=== PATIENT | male | born 1940 | race Caucasian/White ===

== ENCOUNTER → 2018-01-09 | Outpatient (CLI) | payer OTHER | END | disposition home or self-care (01) | LOC: LAB 10:18 | PROVIDERS: ATTEND Internal Medicine Cardiovascular Disease | DX: I25.10 Atherosclerotic heart disease of native coronary artery without angina pectoris (principal) | CPT/HCPCS: 36415; 80061 ==

== ENCOUNTER 2018-01-20 00:09 | Inpatient (IN) | payer OTHER ==
[2018-01-15 14:12] VITALS: BP 157/80
[2018-01-15 14:41] LABS: BASOPHIL % 0.5 % (0.0-0.2); EOSINOPHIL # 0.2 10^3/uL (0.0-0.2); EOSINOPHIL % 2.1 % (0.0-5.0); HEMOGLOBIN 14.6 g/dL (13.9-16.3); LYMPHOCYTES # 1.6 10^3/uL (1.0-4.8); LYMPHOCYTES % 18.6 % (24.0-44.0); MEAN CELL HGB 27.9 pg (26-34); MEAN CELL HGB CONCENTRATION 33.9 g/dL (33-37); MEAN CORP VOLUME 82.4 fL (78-100); MEAN PLATELET VOLUME 9.8 fL (7.8-11.0); MONOCYTES % 12.2 % (5.0-12.0); NEUTROPHIL # 5.6 10^3/uL (1.8-7.7); NEUTROPHILS % 66.1 % (41.0-85.0); WHITE BLOOD CELL 8.5 10^3/uL (4.5-11.0)
[2018-01-15 15:08] LABS: CARBON DIOXIDE 25.4 mmol/L (20.0-32)
[2018-01-15 15:10] LABS: BILIRUBIN,URINE NEGATIVE (NEGATIVE); UROBILINOGEN,URINE NORMAL (NEGATIVE)
[2018-01-15 15:27] LABS: APPEARANCE,URINE CLEAR (CLEAR); UA COLOR YELLOW (YELLOW)
--- NOTE | 2018-01-15 16:18 | PCM.EKG ---
[facility] Test Date: 2018-01-15 Test Time: 14:34:45 Pat Name: SHAGUFTA BEY Department: Room: Gender: M Photograph Tinter: KF ADMISSIONS SUPERVISOR : 1940 Requested By: NATHAN COLEMAN Order Number: [id number] Reading MD: Maxwell Barger Measurements Intervals [place] Rate: 59 P: 48 MO: 178 QRS: 73 QRSD: 114 T: 61 QT: 432 QTc: 427 Interpretive Statements Sinus bradycardia Otherwise normal ECG No previous ECG available for comparison Electronically Signed On 01-20-2018 14:35:10 CDT by Maxwell Barger Please click the below link to view image of tracing.
[2018-01-20] VITALS (9 sets, daily range): BP systolic 91–150; BP diastolic 33–80
[~2018-01-20] VITALS: Ht 170.2 cm; Wt 91.3 kg
[~2018-01-20 00:09] MED LIST: AMLO2.5T2 PO; ASPI-484 PO; MELO15TA24 PO; MULT1TAB52 PO
[2018-01-20] MEDS ORDERED: NS 250ML 250 ML IV ONE ×2 (05:14→07:22)
[2018-01-20] MEDS ORDERED: VANCOMYCIN HCL 2 GM ONE (05:14)
[2018-01-20] MEDS ORDERED: BACTROBAN TP ONE (06:00)
[2018-01-20] MEDS ORDERED: VANCOMYCIN 1,500 MG in NS 100ML 100 ML IV ONE (06:00)
[2018-01-20] MEDS ORDERED: BACTROBAN TP SCH (06:20)
[2018-01-20] MEDS: LACTATED RINGERS 1,000 ML IV SCH ×4 (06:21→20:00)
[2018-01-20] MEDS ORDERED: DIPRIVAN IV ONE (06:57)
[2018-01-20] MEDS ORDERED: ZEMURON IV ONE (06:57)
[2018-01-20] MEDS ORDERED: DECADRON ONE ×3 (06:58→11:13)
[2018-01-20] MEDS ORDERED: LIDOCAINE 2% VIAL ONE ×2 (06:59→11:19)
[2018-01-20] MEDS ORDERED: NEOSTIGMINE ONE (06:59)
[2018-01-20] MEDS ORDERED: CELEBREX PO SCH ×2 (07:00→21:00)
[2018-01-20] MEDS ORDERED: ZOFRAN IV PRN (07:00)
[2018-01-20] MEDS ORDERED: LACTATED RINGERS 1,000 ML IV SCH (07:00)
[2018-01-20] MEDS ORDERED: NEURONTIN PO SCH (07:00)
[2018-01-20] MEDS ORDERED: TYLENOL PO SCH (07:00)
[2018-01-20] MEDS ORDERED: PHENERGAN IV PRN (07:00)
[2018-01-20] MEDS ORDERED: SUBLIMAZE ONE (07:00)
[2018-01-20] MEDS ORDERED: DILAUDID IV PRN ×2 (07:00→11:00)
[2018-01-20] MEDS ORDERED: DILAUDID ONE ×2 (07:00→10:43)
[2018-01-20] MEDS ORDERED: SODIUM CHLORIDE IR ONE (07:21)
[2018-01-20] MEDS ORDERED: NS 100ML 200 ML IV ONE (07:21)
[2018-01-20] MEDS ORDERED: SENSORCAINE-MPF 0.5% VIAL ONE (07:22)
[2018-01-20] MEDS ORDERED: NS 3000ML IRR IR ONE (07:22)
[2018-01-20] MEDS ORDERED: TRANEXAMIC ACID IV ONE (07:33)
[2018-01-20] MEDS ORDERED: EXPAREL 266 MG/20 ML VIAL IJ ONE (09:36)
[2018-01-20] MEDS ORDERED: ROBINAL IV SCH (10:30)
[2018-01-20] MEDS ORDERED: DILAUDID IV ONE (10:44)
[2018-01-20] MEDS ORDERED: DILAUDID IV STA ×2 (10:59)
[2018-01-20] MEDS ORDERED: LACTATED RINGERS 1,000 ML ONE (10:59)
[2018-01-20] MEDS ORDERED: NAROPIN 0.5% 5 MG/ML VIAL ONE (11:13)
[2018-01-20] MEDS ORDERED: CLONIDINE 1,000 MCG/10 ML VIAL EP ONE (11:13)
--- NOTE | 2018-01-20 11:50 | NUR ---
ARRIVAL PT ARRIVED TO UNIT FROM OR VIA BED. PT SET UP ON SPECIAL VITALS MONITOR, ORIENTED TO ROOM AND CALL LIGHT, PT RESTING WITH EYES CLOSED, RESPIRATIONS EVEN AND NON LABORED, NO S/S OF DISTRESS. BED IN LOW POSITION, WHEELS LOCKED, CALL LIGHT IN REACH. WILL CONTINUE TO MONITOR
--- NOTE | 2018-01-20 11:50 | DIREP ---
PROCEDURE:XRAY KNEE 2 VWS-LT COMPARISON:None. INDICATIONS:POST TOTAL LEFT KNEE FINDINGS: Arthroplasty of the left knee in good alignment and without visualized complication. Expected postoperative joint effusion and subcutaneous emphysema with anterior surgical franky. CONCLUSION: Arthroplasty in good alignment and without visualized complication. Dictated by: Doug Carballo DO on 01/20/2018 at 11:49 AM
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
[2018-01-20] MEDS: TYLENOL PO SCH ×3 (13:41→19:00)
--- NOTE | 2018-01-20 14:19 | OPH ---
DATE OF SURGERY: 01/20/2018 PREOPERATIVE DIAGNOSIS: Osteoarthritis of the left knee. POSTOPERATIVE DIAGNOSIS: Osteoarthritis of the left knee. OPERATIVE PROCEDURE: Left total knee arthroplasty using Medacta size 4 femur, a size 4 tibia, 11 mm insert. All components were cemented. SURGEON: Yash Jimenez MD ANESTHESIA: General endotracheal. TOURNIQUET TIME: 67 minutes at 300 mmHg. DRAINS: None. BLOOD LOSS: 400 mL. DESCRIPTION OF INDICATIONS: The patient is a 77-year-old male with pain about the left knee for several years. This has been worse over the last 3-4 months. He complains of limping as well as pain with just household ambulation. He has tried Mobic as well as Tylenol and tramadol for the pain. He has good range of motion, good medial and lateral stability. He is no better with home exercise program as well as off the shelf bracing. The x-rays show that he is iysb-tj-[id number] medially and has patellofemoral narrowing. DESCRIPTION OF PROCEDURE: The patient was placed on the operating table in the supine position. General endotracheal anesthetic was induced without difficulty. A well-padded tourniquet was placed about the left thigh. The left lower extremity was then sterilely prepped and draped. The leg was exsanguinated with an Esmarch and then the tourniquet was inflated to 300 mmHg. The patient had the knee flexed to 90 degrees. An anterior incision was made about the knee. Incision was taken through the skin and the subcutaneous tissues. Full thickness flaps were developed medially and laterally. The patient had a medial parapatellar arthrotomy performed. The patella was deviated laterally. The patient then had the medial and lateral meniscectomies performed. The anterior and posterior cruciate ligaments were removed. The medial capsule and the MCL were released around the posterior medial corner. The intramedullary drill hole was made about the distal femur. The intramedullary humberto was then placed down the shaft of the femur with the distal femoral cutting guide attached. The cutting guide was pinned to the distal femur and the distal femoral cut was made with the power saw. The knee had the bent knee retractor applied and the tibia was subluxed anteriorly. The patient had the intramedullary drill hole made about the center portion of the tibia proximally. The guide humberto was then placed down the shaft of the tibia. The cutting block that was attached to the intramedullary humberto was then adjusted for posterior slope, varus, valgus, depth of cut and rotation. Once all the parameters were met, the cutting block was pinned into position. The cut was made at 8 mm below the lateral least involved surface. We then applied the #2 femoral jig to the distal femur. It was held into position with 2 screws and 2 pins. The distal femur measured a size 4. The size 4 cutting block was applied and held into position with multiple screws and pins. The anterior and posterior femoral cuts as well as the chamfer cuts were then made. The flexion and extension blocks were used. A size 11 mm polyethylene flexion, extension block had good fit at 90 degrees and full extension. The patient had the tibia trialled and a size 4 tibial trial had good coverage. It was held into position with 2 pins. The central drill hole was made and then the cruciate punch was used to stabilize the tibial component. The patient then had a trial reduction done with a size 4 tibia and 11 mm insert and a size 4 femur. The knee went out into full extension. He had 120 degrees of flexion. There was excellent medial and lateral stability and excellent tracking of his patella. The patella showed some peripheral osteophytes, but the central articular cartilage was fairly well intact. So, we elected not to resurface the patella. The peripheral osteophytes were trimmed and the peripheral edges of the patella were then cauterized. The patient then had the final medial and lateral femoral drill holes made. The femoral sulcus cut was made. The patient had the trial components all removed. The Exparel and bupivacaine were then injected into the soft tissue about the knee. The patient then had the wounds copiously irrigated and the bone ends were dried. A size 4 tibial component was cemented into position. The 11 mm insert was impacted in the mid position and secured with an anterior screw. The size 4 femoral component likewise was cemented into position. Once all the excess cement was removed and the cement had hardened, and the tourniquet was released, the bleeding was controlled with the Aquamantys device. The capsule was closed with a #2 PDS in interrupted [id number]-[id number] manner. The knee was injected with a gram of tranexamic acid diluted with 50 mL of saline. The patient had the subcutaneous closed with a running 2-0 barbed Monocryl and then the skin was closed with franky. A medium size Aquacel was applied and reinforced with 4 x 4's, ABD pad, cast padding and an Mina wrap. The patient was extubated in the operating room, sent to recovery in stable condition. Yash Jimenez MD DR: ALANA/taiwo JOB# [id number]
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
[2018-01-20] MEDS ORDERED: CEPACOL SORE THROAT LOZENGE MM PRN (15:30)
[2018-01-20] MEDS ORDERED: MORPHINE SULFATE IV PRN (15:30)
[2018-01-20] MEDS: ULTRAM PO SCH ×2 (16:00→20:00)
[2018-01-20] MEDS: ULTRAM PO PRN ×2 (16:17→20:00)
[2018-01-20 17:49] LABS: HEMOGLOBIN 12.4 g/dL (13.9-16.3); MEAN CELL HGB 27.9 pg (26-34); MEAN CELL HGB CONCENTRATION 32.6 g/dL (33-37); MEAN CORP VOLUME 85.4 fL (78-100); MEAN PLATELET VOLUME 9.7 fL (7.8-11.0); RED CELL DISTRIBUTION WIDTH 13.9 % (11.5-14.5); WHITE BLOOD CELL 11.6 10^3/uL (4.5-11.0)
--- NOTE | 2018-01-20 18:36 | NUR ---
report received report from offgoing shift
[2018-01-20] MEDS: VANCOMYCIN HCL 1.5 GM in NS 250ML 300 ML IV SCH (20:08)
[2018-01-20] MEDS: CELEBREX PO SCH (20:42)
[2018-01-21] VITALS (7 sets, daily range): BP systolic 117–135; BP diastolic 58–78
[2018-01-21] MEDS: ULTRAM PO PRN ×3 (00:04→08:05)
[2018-01-21] MEDS: TYLENOL PO SCH ×4 (01:00→19:00)
[2018-01-21] MEDS: LACTATED RINGERS 1,000 ML IV SCH ×6 (01:20→21:00)
[2018-01-21] MEDS: ULTRAM PO SCH ×7 (04:00→23:50)
[2018-01-21 05:21] LABS: HEMOGLOBIN 11.9 g/dL (13.9-16.3); MEAN CELL HGB 28.1 pg (26-34); MEAN CELL HGB CONCENTRATION 32.6 g/dL (33-37); MEAN CORP VOLUME 86.1 fL (78-100); MEAN PLATELET VOLUME 9.9 fL (7.8-11.0); WHITE BLOOD CELL 16.8 10^3/uL (4.5-11.0)
--- NOTE | 2018-01-21 06:30 | NUR ---
REPORT REPORT RECEIVED FROM CASSANDRA ANDREWS.
--- NOTE | 2018-01-21 06:40 | NUR ---
report report given to o/c shift
[2018-01-21] MEDS ORDERED: NEURONTIN PO SCH (07:00)
[2018-01-21] MEDS ORDERED: PEPCID ONE (07:57)
[2018-01-21] MEDS ORDERED: COLACE PO ONE (07:58)
[2018-01-21] MEDS ORDERED: XARELTO ONE (07:58)
[2018-01-21] MEDS: COLACE PO SCH (08:02)
[2018-01-21] MEDS: PEPCID PO SCH (08:02)
[2018-01-21] MEDS: VANCOMYCIN HCL 1.5 GM in NS 250ML 300 ML IV SCH ×2 (08:02→20:15)
[2018-01-21] MEDS: XARELTO PO SCH (08:03)
[2018-01-21] MEDS: CELEBREX PO SCH ×2 (08:04→20:16)
--- NOTE | 2018-01-21 09:12 | NUR ---
STATUS UPDATE PATIENT SITTING UP IN BED. SOCIALIZING WITH SPOUSE. PATIENT DENIES PAIN OR DISCOMFORT AT THIS TIME. BED IN LOW LOCK POSITION WITH SIDE RAILS X2. CALL LIGHT AND BEDSIDE TABLE WITHIN REACH.
--- NOTE | 2018-01-21 10:40 | NUR ---
DISCHARGE PLAN CM VISITED WITH PATIENT REGARDING DISCHARGE PLAN AND NEEDS. PATIENT LIVES AT HOME WITH HIS IN [place]. HE IS VERY ACTIVE AND INDEPENDENT. HE HAS A WALKER WITH A SEAT AND DENIES NEED FOR ANY ADDITIONAL DME. PATIENT WANTS TO DO HIS PHYSICAL THERAPY AT AN OUTPATIENT THERAPY CLINIC IN [place] AND WANTS CM DEPT TO FIND ONE WHO ACCEPTS HIS INSURANCE. CM CONTACTED [facility]. APPOINTMENT SCHEDULED. INFORMATION GIVEN TO PATIENT AND PUT IN DISCHARGE INSTRUCTIONS. DISCHARGE GOAL IS TO DISCHARGE HOME WITH . CM DEPT WILL CONTINUE TO MONITOR DISCHARGE NEEDS.
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
--- NOTE | 2018-01-21 11:16 | NUR ---
post op day 1 s/p TKR with exparel injected by surgeon intraarticular. pt had 8/10 pain in pacu and a rescue adductor canal block was performed. Physical Therapist noted that the first time the patient got up the pain was bad per the pat and his BP dropped and he felt as thought he was going to pass out. no further episodes like this since. Pt stated the block did help with the pain but he is still having pain with leg extension in the thigh and some pain in the upper part of the knee. he says it is tolerable. He has been up ambulating the baxter and denies any other issues. will followup tomorrow.
--- NOTE | 2018-01-21 15:42 | NUR ---
STATUS UPDATE PATIENT SITTING UPRIGHT IN BED. CALL LIGHT AND BEDSIDE TABLE WITHIN REACH. BED IN LOW LOCK POSITION. SIDE RAILS X2. PATIENT DENIES NEEDS AT THIS TIME.
--- NOTE | 2018-01-21 19:29 | NUR ---
REPORT REPORT GIVEN TO SOLE MOLDING MACHINE OPERATOR.
[2018-01-22] MEDS: TYLENOL PO SCH ×4 (01:00→19:28)
[2018-01-22 01:44] VITALS: BP 119/66
[2018-01-22] MEDS: LACTATED RINGERS 1,000 ML IV SCH ×6 (02:00→22:00)
[2018-01-22] MEDS: ULTRAM PO SCH ×5 (03:50→20:00)
[2018-01-22 05:11] LABS: HEMOGLOBIN 11.2 g/dL (13.9-16.3); MEAN CORP VOLUME 87.5 fL (78-100); MEAN PLATELET VOLUME 10.3 fL (7.8-11.0); RED CELL DISTRIBUTION WIDTH 14.2 % (11.5-14.5); WHITE BLOOD CELL 10.4 10^3/uL (4.5-11.0)
[2018-01-22 06:01] VITALS: BP 118/64
[2018-01-22 08:24] VITALS: BP 112/62
[2018-01-22] MEDS: ULTRAM PO PRN ×4 (08:35→20:30)
[2018-01-22] MEDS: CELEBREX PO SCH ×2 (08:36→20:30)
[2018-01-22] MEDS: PEPCID PO SCH (08:36)
[2018-01-22] MEDS: COLACE PO SCH (08:36)
[2018-01-22] MEDS: XARELTO PO SCH (08:36)
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
--- NOTE | 2018-01-22 10:02 | NUR ---
post op day 2 S/P TKR. pt sitting up in chair eating breakfast and is dressed in street clothes. He states the pain came hard last night. He states he attempted to cut back to 1 ultram at a time but needed to take two this last time. pain is located on the medial aspect of the knee and on top of the knee. states there is still pain in his anterior thigh when he walks. pt in good spirits.
--- NOTE | 2018-01-22 10:08 | NUR ---
SHOWER PATIENT SHOWERED BY OT. BED LINENS CHANGED.
[2018-01-22 12:01] VITALS: BP 124/62
[2018-01-22 15:30] VITALS: BP 130/67
[2018-01-22 21:12] VITALS: BP 116/54
[2018-01-23] VITALS: BP 109/55
[2018-01-23] MEDS: ULTRAM PO PRN ×2 (00:33→04:41)
[2018-01-23] MEDS: TYLENOL PO SCH ×2 (00:43→09:12)
[2018-01-23] MEDS: LACTATED RINGERS 1,000 ML IV SCH ×2 (02:16→06:00)
[2018-01-23] MEDS: ULTRAM PO SCH ×3 (04:00→09:12)
[2018-01-23 05:29] VITALS: BP 135/60
--- NOTE | 2018-01-23 06:46 | NUR ---
REPORT REPORT RECEIVED FROM JUAN ANDREWS ASSUMED CARE OF PT
[2018-01-23] MEDS ORDERED: NORVASC PO SCH (09:00)
[2018-01-23 09:08] VITALS: BP 150/70
[2018-01-23] MEDS: COLACE PO SCH (09:10)
[2018-01-23] MEDS: PEPCID PO SCH (09:10)
[2018-01-23] MEDS: CELEBREX PO SCH (09:10)
[2018-01-23] MEDS: XARELTO PO SCH (09:11)
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
[2018-01-23] MEDS ORDERED: ASPI325T17 PO (11:44)
[2018-01-23] MEDS ORDERED: TRAM-47 PO (11:46)
[2018-01-23 12:10] VITALS: BP 150/70
--- NOTE | 2018-01-23 12:10 | NUR ---
D/C PT D/C AND OFF FLOOR VIA W/C
--- NOTE | 2018-01-23 19:27 | DSH ---
DATE OF DISCHARGE: 01/23/2018 ADMITTING DIAGNOSIS: Osteoarthritis of the left knee. OTHER DIAGNOSES: Include hypertension as well as coronary artery disease. DISCHARGE DIAGNOSES: Osteoarthritis of the left knee plus postoperative anemia secondary to surgery expected. OPERATIVE PROCEDURE DATE: 01/20/2018. PROCEDURE PERFORMED: Left total knee arthroplasty. CONSULTATIONS: None. COMPLICATIONS: None. SUMMARY OF ADMISSION: The patient is a 77-year-old male with severe daily limitations on his activities secondary to OA about the left knee. He failed conservative treatment as outlined in his history and physical and was taken to the operating room for left total knee arthroplasty. The patient's procedure was performed without incident. Postoperatively, he was awake and alert. Neurovascular exam was normal. The patient's pain has been well controlled throughout his postoperative course. He had daily physical therapy as well as occupational therapy. On discharge, he is independent with his transfers and ambulation as well as his ADLs. The patient has been on Xarelto as well as early ambulation and foot pump, SCDs for DVT prophylaxis. The patient's wound is benign. His pain has been well controlled with tramadol. The patient will be discharged today on 01/23/2018. He will be instructed to use his walker to ambulate. He can weightbear as tolerated. He will do his physical therapy at [facility] in [place]. He will leave his Aquacel dressing intact and I will see him in my office in 1 week. We will give him a prescription for Ultram for the pain. He will use aspirin 325 mg twice a day for 1 month for DVT prophylaxis. Yash Jimenez MD DR: ALANA/taiwo JOB# [id number]
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
== END 2018-01-23 12:33 | DRG 470 ==
LOC: SDC 00:09 → UNDOADMIN 00:10 → MS 00:10 → EDPENDDISTM 01-23 12:10
PROVIDERS: ADMIT Orthopaedic Surgery; ATTEND Orthopaedic Surgery
PROC: 0SRD0J9 Replacement of Left Knee Joint with Synthetic Substitute, Cemented, Open Approach (ICD-10-PCS; principal; 2018-01-20 08:00)
DX: M17.12 Unilateral primary osteoarthritis, left knee (principal); D64.9 Anemia, unspecified; I10 Essential (primary) hypertension; I25.10 Atherosclerotic heart disease of native coronary artery without angina pectoris; Z88.0 Allergy status to penicillin; Z79.899 Other long term (current) drug therapy; Z79.82 Long term (current) use of aspirin; Z85.51 Personal history of malignant neoplasm of bladder; Z82.3 Family history of stroke; Z82.49 Family history of ischemic heart disease and other diseases of the circulatory system; Z80.9 Family history of malignant neoplasm, unspecified
CPT/HCPCS: 36415; 80053; 81000; 85025; 85027; 87070; 93005; 97161; 97165; G0378; J1100; J1170; J2001; J2405; J2710; J2795; J3010; J3490; J7030; J7050; J7120; 73560-LT; 97110-GP; 97116-GP; 97530-GP; 97535-GO; 97760-GP; C9290; G8978-CK; G8979-CJ; G8987; G8988; J3370; J8499

== ENCOUNTER → 2018-05-06 | Outpatient (CLI) | payer OTHER ==
[~2018-05-06] MED LIST changes: +ASPI325T17 PO; +TRAM-47 PO
[2018-05-06 15:40] LABS: CALCIUM 8.8 mg/dL (8.4-10.5); CARBON DIOXIDE 27.7 mmol/L (20.0-32)
== END | disposition home or self-care (01) ==
LOC: NPLAB 14:29
PROVIDERS: ATTEND Internal Medicine Cardiovascular Disease
DX: I25.10 Atherosclerotic heart disease of native coronary artery without angina pectoris (principal)
CPT/HCPCS: 36415; 80053; 80061; 82550

== ENCOUNTER → 2025-05-25 | Outpatient (CLI) | payer OTHER ==
[~2025-05-25] MED LIST changes: -ASPI-484 PO; +ASPI-485 PO; +MULT-419 PO; -MULT1TAB52 PO
== END | disposition home or self-care (01) ==
LOC: RAD 11:48
PROVIDERS: ATTEND Nurse Practitioner Family
DX: J44.9 Chronic obstructive pulmonary disease, unspecified (principal); J20.9 Acute bronchitis, unspecified; M47.814 Spondylosis without myelopathy or radiculopathy, thoracic region
CPT/HCPCS: 71046